=== PATIENT | female | born 1975 | race Caucasian/White ===

== ENCOUNTER 2018-09-17 13:03 | Outpatient (CLI) | payer BC ==
[~2018-09-17] VITALS: Ht 175.3 cm; Wt 115.2 kg
[2018-09-17 13:10] VITALS: BP 126/82
[2018-09-17 13:40] LABS: BASOPHILS % (AUTO) 0 % (0-10); EOSINOPHILS # (AUTO) 0.1 10^3/uL (0.0-0.3); EOSINOPHILS % (AUTO) 1 % (0-10); HEMATOCRIT 38 % (35-52); HEMOGLOBIN 12.8 G/DL (11.5-16.0); LYMPHOCYTES # (AUTO) 1.9 X 10^3 (1.0-4.0); LYMPHOCYTES % (AUTO) 27 % (12-44); MEAN CORPUSCULAR HEMOGLOBIN 29 PG (25-34); MEAN CORPUSCULAR HGB CONC 34 G/DL (32-36); MEAN CORPUSCULAR VOLUME 85 FL (80-99); MEAN PLATELET VOLUME 9.7 FL (7.4-10.4); MONOCYTES # (AUTO) 0.5 X 10^3 (0.0-1.0); MONOCYTES % (AUTO) 7 % (0-12); NEUTROPHILS # (AUTO) 4.6 X 10^3 (1.8-7.8); NEUTROPHILS % (AUTO) 65 % (42-75); PLATELET COUNT 242 10^3/uL (130-400); RED CELL DISTRIBUTION WIDTH 13.4 % (10.0-14.5); WHITE BLOOD COUNT 7.1 10^3/uL (4.3-11.0)
[2018-09-17 14:00] LABS: BUN/CREATININE RATIO 20; CALCIUM 9.4 MG/DL (8.5-10.1); CARBON DIOXIDE 24 MMOL/L (21-32); CHLORIDE 106 MMOL/L (98-107); CREATININE SERUM 0.75 MG/DL (0.60-1.30); GFR ESTIMATED > 60; GLUCOSE 96 MG/DL (70-105); POTASSIUM 3.9 MMOL/L (3.6-5.0); SODIUM 142 MMOL/L (135-145)
[2018-09-17] MEDS ORDERED: TAMO20TA2 PO (15:28)
[2018-09-17] MEDS ORDERED: OMEP20CA12 PO (15:28)
[2018-09-17] MEDS ORDERED: VENL75CA PO (15:28)
[2018-09-17] MEDS ORDERED: QUIN20TA16 PO (15:28)
--- NOTE | 2018-09-17 17:39 | Diagnostic Imaging Report ---
INDICATION: Evaluation prior to direct laryngoscopy and biopsy of the tongue. TECHNIQUE: Two-view chest at 2:06 p.m. CORRELATION STUDY: None. FINDINGS: Heart size and vasculature are within normal limits. The lungs are clear with no consolidating infiltrate. There is no significant pleural effusion or pneumothorax. There is a suggestion of asymmetry in the left breast shadow and smaller than the right. Surgical clips over the chest and axillary region are present. IMPRESSION: 1. Negative for acute abnormality of the chest. Dictated by: Dictated on workstation # [id number]
== END 2018-09-17 13:45 | disposition home or self-care (01) ==
LOC: PREOP 13:03
PROVIDERS: ATTEND Otolaryngology Otolaryngology/Facial Plastic Surgery
DX: Z01.810 Encounter for preprocedural cardiovascular examination (principal); Z01.811 Encounter for preprocedural respiratory examination; Z01.812 Encounter for preprocedural laboratory examination; Z11.2 Encounter for screening for other bacterial diseases; K14.9 Disease of tongue, unspecified
CPT/HCPCS: 36415; 71046; 80048; 85025; 87081; 93005

== ENCOUNTER 2018-09-20 07:02 | Day surgery (SDC) | payer BC ==
[~2018-09-20] VITALS: Ht 175.3 cm; Wt 115.2 kg
[~2018-09-20 07:02] MED LIST: OMEP20CA12 PO; QUIN20TA16 PO; TAMO20TA2 PO; VENL75CA PO
[2018-09-20] MEDS ORDERED: LACTATED RINGERS 1,000 ML IV PRN (07:10)
[2018-09-20] MEDS ORDERED: fentaNYL INJECTION 100 MCG/2 ML AMP ONE (08:08)
[2018-09-20] MEDS ORDERED: MIDAZOLAM 2 MG/2 ML (VERSED) VIAL ONE (08:08)
[2018-09-20 08:10] VITALS: BP 126/76
[2018-09-20] MEDS ORDERED: LIDOCAINE/EPI 1%-1:100,000 (XYLOCAINE) 20ML ONE (08:12)
[2018-09-20] MEDS ORDERED: proPOfol 200 MG/20 ML (DIPRIVAN) VIAL IV ONE ×2 (08:14→08:48)
[2018-09-20] MEDS ORDERED: LIDOCAINE PF 2% 5 ML (XYLOCAINE) VIAL ONE (08:14)
[2018-09-20] MEDS ORDERED: ONDANSETRON 4 MG/2 ML (SDV) Z0FRAN ONE (08:14)
[2018-09-20] MEDS ORDERED: DEXAMETHASONE 10 MG/ML (DECADRON) 1 ML VIAL ONE (08:14)
[2018-09-20] MEDS ORDERED: SEVOFLURANE (ULTANE) 15 ML INHAL SOLN ONE ×4 (08:14→08:57)
[2018-09-20] MEDS ORDERED: HYDR12.5 PO (08:17)
[2018-09-20] MEDS ORDERED: LIDOCAINE/EPI 1%-1:200,000 (XYLOCAINE) 10 ML VIAL ONE (08:49)
--- NOTE | 2018-09-20 09:18 | Progress Note-Pre Operative ---
Pre-Operative Progress Note H&P Reviewed The H&P was reviewed, patient examined and no changes noted. Date Seen by Provider: Sep 20, 2018 Time Seen by Provider: 08: Date H&P Reviewed: Sep 20, 2018 Time H&P Reviewed: :30 Pre-Operative Diagnosis: Chronic Left Throat patient with left ear pain CAROLINA RODRIGUEZ MD Sep 20, 2018 9:18 am
--- NOTE | 2018-09-20 09:20 | Progress Note-Post Operative ---
Post-Operative Progess Note Surgeon (s)/Planograph Operator (s) Surgeon CAROLINA RODRIGUEZ MD Planograph Operator n/a Pre-Operative Diagnosis Chronic Left Throat patient with left ear pain Post-Operative Diagnosis same Post-Op Procedure Note Date of Procedure: Sep 20, 2018 Name of Procedure Performed: Direct Laryngscopy with Biopsy of BAse of tongeu, Biopsy of left tonsilla pillar, left tonsillar fossa and Junction of base of tongue and tonsillar pillar Description & Findings Description and Findings: n/a Anesthesia Type get Estimated Blood Loss minimal Packing none. Specimen(s) collected/removed left tonsillar pillar, left tonsillar fossa, junction of left base of tongue and tonsillar pillar, base of tongue to path for permanent sections CAROLINA RODRIGUEZ MD Sep 20, 2018 9:20 am
[2018-09-20] MEDS ORDERED: HYDROcodone/APAP 5 MG/325 MG (LORTAB) TAB PO PRN (09:30)
[2018-09-20] MEDS ORDERED: fentaNYL INJECTION 100 MCG/2 ML AMP IVP ONE (09:30)
[2018-09-20] MEDS ORDERED: PROMETHAZINE INJ 25 MG/ML (PHENERGAN) AMP IV PRN (09:30)
[2018-09-20] MEDS ORDERED: ACETAMINOPHEN 325 MG TABLET PO PRN (09:30)
[2018-09-20] MEDS ORDERED: SUCCINYLCHOLINE INJ 100 MG/5 ML SYR ONE (09:33)
[2018-09-20 10:20] VITALS: BP 136/67
[2018-09-20 10:50] VITALS: BP 140/70
[2018-09-20] MEDS ORDERED: LIDOCAINE 2% VISCOUS 15 ML UDC PO SCH (11:00)
[2018-09-20 11:30] VITALS: BP 138/72
[2018-09-20 12:12] VITALS: BP 138/72
--- NOTE | 2018-09-20 13:03 | Anesthesia-General Post-Op ---
General Patient Condition Mental Status/LOC: Same as Preop Cardiovascular: Satisfactory Nausea/Vomiting: Absent Respiratory: Satisfactory Pain: Controlled Complications: Absent Post Op Complications Complications None Follow Up Care/Instructions Patient Instructions None needed. Anesthesia/Patient Condition Patient Condition Patient is doing well, no complaints, stable vital signs, no apparent adverse anesthesia problems. No complications reported per nursing. D/C home per [facility] [place] Criteria: Yes ADIA YUAN CRNA Sep 20, 2018 13:02
== END 2018-09-20 12:12 | disposition home or self-care (01) ==
LOC: SDC 07:02
PROVIDERS: ATTEND Otolaryngology Otolaryngology/Facial Plastic Surgery
DX: K14.8 Other diseases of tongue (principal); J35.8 Other chronic diseases of tonsils and adenoids; E66.9 Obesity, unspecified; Z68.37 Body mass index [BMI] 37.0-37.9, adult; Z87.891 Personal history of nicotine dependence; Z79.899 Other long term (current) drug therapy; Z85.3 Personal history of malignant neoplasm of breast
CPT/HCPCS: 88305

== ENCOUNTER 2018-12-09 15:44 | Emergency (ER) | payer BC ==
[~2018-12-09] VITALS: Ht 177.8 cm; Wt 108.9 kg
[~2018-12-09 15:44] MED LIST changes: +HYDR12.5 PO
[2018-12-09] MEDS ORDERED: HYDROcodone/APAP 5 MG/325 MG (LORTAB) TAB PO ONE (16:15)
--- NOTE | 2018-12-09 16:52 | ED Lower Extremity ---
General Chief Complaint: Lower Extremity Stated Complaint: LEFT LEG/ANKLE PAIN Nursing Triage Note: PT REPORTS FALL IN [employer]. PT CARRYING THINGS AND FELL ONTO KNEES WITH LEFT LEG/FOOT TWISTED. Nursing Sepsis Screen: No Definite Risk History of Present Illness Date Seen by Provider: Dec 09, 2018 Time Seen by Provider: 16:48 Initial Comments Slipped on ice today. Has pain in lower leg and ankle. No other injuries reported. Allergies and Home Medications Allergies Coded Allergies: Sulfa (Sulfonamide Antibiotics) (Verified Allergy, Unknown, n/v/pantoja, ) Home Medications Hydrochlorothiazide 12.5 Mg Capsule, 12.5 MG PO BID, (Reported) Omeprazole 20 Mg Capsule.dr, 20 MG PO BID, (Reported) Quinapril HCl 20 Mg Tablet, 20 MG PO BID, (Reported) Tamoxifen Citrate 20 Mg Tablet, 20 MG PO DAILY, (Reported) Venlafaxine HCl 75 Mg Cap.er.24h, 150 MG PO DAILY, (Reported) TAKE 2 (75MG) TABS Patient Home Medication List Home Medication List Reviewed: Yes Review of Systems Constitutional: see HPI EENTM: see HPI Respiratory: see HPI Cardiovascular: see HPI Gastrointestinal: see HPI Genitourinary: see HPI Musculoskeletal: see HPI; No back pain; joint pain, joint swelling, muscle pain Skin: see HPI Psychiatric/Neurological: No Symptoms Reported, See HPI Past Vlakmiv-Qsvhqf-Rmytxh Hx Past Med/Social Hx: Reviewed Nursing Past Med/Soc Hx Patient Social History Alcohol Use: Rarely Uses Recreational Drug Use: No Smoking Status: Former Smoker Former Smoker, Quit: Sep 17, 2000 2nd Hand Smoke Exposure: No Recent Foreign Travel: No Contact w/Someone Who Travel: No Recent Infectious Disease Expo: No Recent Hopitalizations: No Physical Abuse: No Sexual Abuse: No Mistreated: No Fear: No Immunizations Up To Date Date of Influenza Vaccine: Sep 21, 2018 Seasonal Allergies Seasonal Allergies: Yes Past Medical History Surgeries: Yes (cystogram, LEEP, bladder repair, bilat mastectomy, breast reconstruction) Adenoidectomy, Section, Hysterectomy, Tonsillectomy Respiratory: No Cardiac: Yes Hypertension Neurological: No : No CAR PARKER History: Hysterectomy Genitourinary: Yes UTI-Chronic Gastrointestinal: Yes Gastroesophageal Reflux Musculoskeletal: No Endocrine: No HEENT: Yes Cataract Cancer: Yes Breast What Type of Treatment Did You: Chemotherapy, Radiation, Surgical Intervention Psychosocial: No Integumentary: No Blood Disorders: No Physical Exam Vital Signs Vital Signs - First Documented 12/09/18 15:56 Temp 98.4 Pulse 81 Resp 22 B/P (MAP) 158/89 (112) Pulse Ox 100 O2 Delivery Room Air Capillary Refill : Less Than 3 Seconds Height, Weight, BMI Height: 5'10.00" Weight: 240lbs. 0.0oz. 108.850152vp; 37.5 BMI Method:Stated General Appearance: WD/WN, no apparent distress HEENT: PERRL/EOMI, normal ENT inspection, TMs normal, pharynx normal Neck: non-tender, full range of motion, supple, normal inspection Cardiovascular: normal peripheral pulses, regular rate, rhythm, no edema, no gallop, no JVD, no murmur Respiratory: chest non-tender, lungs clear, normal breath sounds, no respiratory distress, no accessory muscle use Gastrointestinal: normal bowel sounds, non tender, soft, no organomegaly, no pulsatile mass Back: normal inspection, no CVA tenderness, no vertebral tenderness Hips: right hip non-tender; bilateral hip non-tender; right hip normal inspection; bilateral hip normal inspection; right hip normal range of motion; bilateral hip normal range of motion; right hip no evidence of injury; bilateral hip no evidence of injury Legs: left leg bone tenderness, left leg limited range of motion, left leg pain , left leg swelling Knees: bilateral knee normal range of motion Ankles: right ankle non-tender, right ankle normal inspection, right ankle normal range of motion, right ankle no evidence of injury; left ankle bone tenderness, left ankle pain, left ankle soft tissue tenderness, left ankle swelling Feet: bilateral foot non-tender, bilateral foot normal inspection, bilateral foot normal range of motion, bilateral foot no evidence of injury Reflexes: 0 knee (R); 3+ knee (R), 3+ knee (L), 3+ ankle (R), 3+ ankle (L) Neurologic/Tendon: normal sensation, normal motor functions, normal tendon functions, responds to pain, no evidence tendon injury Neurologic/Psychiatric: drapery installer II-XII nml as tested, no motor/sensory deficits, alert, normal mood/affect, oriented x 3 Skin: normal color, warm/dry Lymphatic: no adenopathy Progress/Results/Core Measures Results/Orders My Orders Orders - ERIN BATES MD Ankle 3 View Left (12/09/18 16:00) Foot 3 View Left (12/09/18 16:00) Tibia Fibula 2 View Left (12/09/18 16:00) Hydrocodone/Apap 5/325 Tablet (Lortab 5 (12/09/18 16:15) Medications Given in ED Current Medications Medications Dose Ordered Sig/Yusef Route Start Time Stop Time Status Last Admin Dose Admin Acetaminophen/ Hydrocodone Bitart 1 tab ONCE ONCE PO 12/09/18 16:15 12/09/18 16:16 DC 12/09/18 16:26 1 TAB Vital Signs/I&O 12/09/18 15:56 Temp 98.4 Pulse 81 Resp 22 B/P (MAP) 158/89 (112) Pulse Ox 100 O2 Delivery Room Air Blood Pressure Mean: 112 Diagnostic Imaging Diagonstic Imaging: Xray Plain Films/CT/US/NM/MRI: leg Comments minimally displaced distal fibular fracture. No other fractures seen. Consults : Consults Notes Discussed with RYLIE Glover with Dr. Montemayor who saw the x-rays (he knows pt). He requested camwalker boot and follow up in their office tomorrow. Departure Impression Primary Impression: Left fibular fracture Qualified Codes: S82.832A - Other fracture of upper and lower end of left fibula, initial encounter for closed fracture Disposition: 01 HOME, SELF-CARE Condition: Improved Departure-Patient Inst. Decision time for Depature: 16:56 Referrals: HEMAL RIVERA MD (PCP/Family) Primary Care Physician Patient Instructions: Ankle Fracture (DC) Add. Discharge Instructions: Ice and elevation. Watch for decreased sensation and loosen splint if that occurs. Limit weight bearing until cleared to ambulate. Wear Camwalker boot unless in bed or showering. All discharge instructions reviewed with patient and/or family. Voiced understanding. Scripts Hydrocodone Bit/Acetaminophen (Hydrocodone/Acetaminophen 5/325mg Tablet) 1 Tab Tab 1-2 EACH PO Q6H PRN for PAIN-MODERATE MDD 10, #15 TAB 0 Refills Prov: ERIN BATES MD 12/09/18 ERIN BATES MD Dec 09, 2018 16:52
[2018-12-09] MEDS ORDERED: ACHD5005 PO (16:56)
--- NOTE | 2018-12-09 17:00 | Diagnostic Imaging Report ---
INDICATION: Fracture. FINDINGS: Obliquely oriented distal fibular fracture is present. Medial malleolus appears intact. The posterior malleolus is intact. The talus unremarkable. There is plantar calcaneal spurring. IMPRESSION: Distal fibular fracture. Dictated by: Dictated on workstation # [id number]
--- NOTE | 2018-12-09 17:02 | Diagnostic Imaging Report ---
INDICATION: Fracture. FINDINGS: A distal fibular fracture is present. The midshaft and proximal fibula are intact. The tibia is intact. IMPRESSION: Distal fibular fracture with no other injury apparent. Dictated by: Dictated on workstation # [id number]
--- NOTE | 2018-12-09 17:03 | Diagnostic Imaging Report ---
INDICATION: Injury with pain. FINDINGS: There is a distal fibular fracture present. The talus and calcaneus are intact. The mid and forefoot are intact. No other fracture. IMPRESSION: Distal fibular fracture with no other injury apparent. Dictated by: Dictated on workstation # [id number]
[2018-12-09 17:35] VITALS: BP 131/71
--- NOTE | 2018-12-09 17:35 | NUR ---
PT SIGNED A RELEASE OF MEDICAL RECORDS FORM TO HAVE TO OBTAIN REPORT OF XRAY COMPLETED TODAY DISK COPY IS NOT CAPABLE OF BEING MADE. CONSENT FORM GIVEN TO PATIENT ALSO. ONE KEPT IN PATIENT'S CHART. NO TYPED REPORT AVAILABLE AT DISCHARGE.
== END 2018-12-09 17:35 | disposition home or self-care (01) ==
LOC: ER FS 15:44
DX: S82.832A Other fracture of upper and lower end of left fibula, initial encounter for closed fracture (principal); I10 Essential (primary) hypertension; K21.9 Gastro-esophageal reflux disease without esophagitis; Z92.21 Personal history of antineoplastic chemotherapy; Z85.3 Personal history of malignant neoplasm of breast; Z87.440 Personal history of urinary (tract) infections; Z88.2 Allergy status to sulfonamides; Z87.891 Personal history of nicotine dependence; Z98.890 Other specified postprocedural states; Z90.89 Acquired absence of other organs; Z90.710 Acquired absence of both cervix and uterus; Z90.13 Acquired absence of bilateral breasts and nipples; W00.0XXA Fall on same level due to ice and snow, initial encounter
CPT/HCPCS: 73590; 73610; 73630

== ENCOUNTER → 2018-12-24 | Outpatient (CLI) | payer BC ==
[~2018-12-24] MED LIST changes: +ACHD5005 PO
--- NOTE | 2018-12-24 10:38 | Diagnostic Imaging Report ---
Indication: Left ankle pain, fracture followup. AP, oblique, lateral views left ankle are obtained and compared with 12/09/2018. Overlying cast is now in place. Oblique fracture distal fibula is unchanged in alignment and appearance compared to the prior study. There is no new abnormality. Impression: Unchanged appearance of distal fibular fracture with no new abnormality. Overlying cast is in place. Dictated by: Dictated on workstation # [id number]
== END ==
LOC: RAD FS 10:01
PROVIDERS: ATTEND Nurse Practitioner
DX: S82.832D Other fracture of upper and lower end of left fibula, subsequent encounter for closed fracture with routine healing (principal)
CPT/HCPCS: 73610

== ENCOUNTER → 2019-01-07 | Outpatient (CLI) | payer BC ==
--- NOTE | 2019-01-07 10:42 | Diagnostic Imaging Report ---
INDICATION: Left ankle injury, pain. COMPARISON: 12/24/2018. FINDINGS: Three views of the left ankle demonstrate stable alignment of the distal fibula oblique fracture. There is some slight blurring of the fracture margins indicating healing. No overt callus formation is seen. The ankle mortise is intact. IMPRESSION: Stable alignment of the distal fibular fracture. No overt callus formation is seen. Dictated by: Dictated on workstation # [id number]
== END ==
LOC: RAD FS 10:10
PROVIDERS: ATTEND Nurse Practitioner
DX: S82.831A Other fracture of upper and lower end of right fibula, initial encounter for closed fracture (principal)
CPT/HCPCS: 73610

== ENCOUNTER → 2019-01-27 | Outpatient (CLI) | payer BC ==
--- NOTE | 2019-01-27 10:13 | Diagnostic Imaging Report ---
EXAMINATION: Left ankle, 3 views. COMPARISON: February 07, 2019. HISTORY: 43-year-old female, history of distal fibular fracture. Followup exam. FINDINGS: There is a redemonstrated mildly displaced distal fibular diaphyseal fracture occurring about the level of the tibial plafond. There is interval periosteal reaction without bony callus bridging. There is no tibiotalar joint effusion. The alignment of the ankle mortise is unremarkable. There is no radiographically visible osteochondral lesion of the talar dome. There is a calcaneal heel spur. IMPRESSION: 1. Partial interval healing response at the site of the distal fibular diaphyseal fracture above the level of the tibial plafond in the form of periosteal reaction without bony callus bridging. No change in the fracture alignment. 2. Unremarkable alignment of the ankle mortise. Dictated by: Dictated on workstation # [id number]
== END ==
LOC: RAD FS 09:58
PROVIDERS: ATTEND Nurse Practitioner
DX: S82.831D Other fracture of upper and lower end of right fibula, subsequent encounter for closed fracture with routine healing (principal)
CPT/HCPCS: 73610

== ENCOUNTER → 2019-02-24 | Outpatient (CLI) | payer BC ==
--- NOTE | 2019-02-24 08:47 | Diagnostic Imaging Report ---
Indication: Left ankle injury 3 views of left ankle show oblique fracture of the distal fibula with some callus forming. Alignment is stable compared to 01/27/2019. Impression: Stable healing fracture left ankle. Dictated by: Dictated on workstation # [id number]
== END ==
LOC: RAD FS 08:26
PROVIDERS: ATTEND Nurse Practitioner
DX: S82.831D Other fracture of upper and lower end of right fibula, subsequent encounter for closed fracture with routine healing (principal)
CPT/HCPCS: 73610

== ENCOUNTER → 2019-04-07 | Outpatient (CLI) | payer BC ==
--- NOTE | 2019-04-07 08:37 | Diagnostic Imaging Report ---
INDICATION: Left ankle fracture, followup AP, oblique, and lateral views of the left ankle are obtained and compared with 02/24/2019. Oblique fracture distal fibula is unchanged in alignment compared to the prior study with some early callus formation. The distal tibia and talus are intact. There is plantar calcaneal spurring. IMPRESSION: Stable alignment of distal fibular fracture with early callus formation. No new abnormality otherwise seen. Dictated by: Dictated on workstation # [id number]
== END ==
LOC: RAD FS 08:08
PROVIDERS: ATTEND Nurse Practitioner
DX: S82.831D Other fracture of upper and lower end of right fibula, subsequent encounter for closed fracture with routine healing (principal)
CPT/HCPCS: 73610

== ENCOUNTER → 2019-05-27 | Outpatient (CLI) | payer BC ==
[~2019-05-27] MED LIST changes: -OMEP20CA12 PO; +OMEP20CA13 PO
--- NOTE | 2019-05-27 14:47 | Diagnostic Imaging Report ---
Indication: Left ankle fracture, followup. Time of exam 2:18 PM Correlation made with prior radiographs from 04/07/2019. Obliquely oriented fracture through the suprasyndesmotic portion of the distal fibula is again seen. Fracture line shows continued blurring consistent with healing. There is some callus formation. Fracture line does remain partly visible. Alignment is stable. Ankle mortise is maintained. Talar dome is smooth. Large plantar calcaneal spur is noted. Impression: Healing obliquely oriented distal left fibular fracture. Fracture line does remain partly visible. Dictated by: Dictated on workstation # [id number]
== END ==
LOC: RAD FS 14:03
PROVIDERS: ATTEND Nurse Practitioner
DX: S82.432 Displaced oblique fracture of shaft of left fibula (principal)
CPT/HCPCS: 73610